=== PATIENT | female | born 1980 | race Caucasian/White ===

== ENCOUNTER 2016-04-11 18:51 | Emergency (ER) | payer MEDICAID ==
[~2016-04-11] VITALS: Ht 152.4 cm; Wt 108.5 kg
[~2016-04-11 18:51] MED LIST: ACET325T33 PO; CYCL-319 PO; HYDR-3498 PO; IBUP800T25 PO; NAPR-260 PO; PEN500 PO; PRED20TA PO
[2016-04-11 19:11] VITALS: Ht 152.4 cm; Wt 108.5 kg
[2016-04-11] MEDS ORDERED: IBUP-1542 PO (20:23)
[2016-04-11] MEDS ORDERED: IBUPROFEN 800 MG TAB PO ONE (20:30)
--- NOTE | 2016-04-11 20:37 | ERD ---
ER Documentation Chief Complaint Date/Time DATE: 04/11/16 TIME: 20:36 Chief Complaint Dizziness and bilateral leg cramps HPI Patient is a 35-year-old female with no medical problems who presents with leg cramping. She has leg cramping in both legs and pain running down the back of both of her legs. She says that she has had this for "a long time" although it has been worse since Friday. She felt dizzy. She also felt cold all over her body. She has had no treatment as of yet. She does not currently have a primary doctor. ROS All systems reviewed and are negative except as per history of present illness. Medications Home Meds Active Scripts Ibuprofen* (Motrin*) 600 Mg Tab, 600 MG PO Q6H Y for PAIN AND OR ELEVATED TEMP, #30 TAB Prov:MUNIR PIMENTEL MD 04/11/16 Prednisone* (Prednisone*) 20 Mg Tab, 40 MG PO DAILY for 4 Days, TAB Prov:ANGELIKA BROWN PA-C 07/25/15 Ibuprofen* (Motrin*) 800 Mg Tab, 800 MG PO Q6, #30 TAB Prov:ANGELIKA BROWN PA-C 07/25/15 Acetaminophen* (Tylenol*) 325 Mg Tablet, 2 TAB PO Q8 Y for PAIN AND OR ELEVATED TEMP, #20 TAB Prov:ANGELIKA BROWN PA-C 07/25/15 Penicillin V Potassium* (Penicillin V K*) 500 Mg Tab, 500 MG PO BID for 10 Days , TAB Prov:ANGELIKA BROWN PA-C 07/25/15 Naproxen* (Naprosyn*) 500 Mg Tablet, 500 MG PO BID Y for PAIN AND/OR INFLAMMATION, #30 TAB Prov:ANGELIKA BROWN PA-C 06/08/15 Cyclobenzaprine Hcl* (Cyclobenzaprine Hcl*) 10 Mg Tablet, 10 MG PO TID, #15 TAB Prov:ANGELIKA BROWN PA-C 06/08/15 Hydrocodone Bit-Acetaminophen* ([place]*) 5-325 Mg Tab, 1 TAB PO Q6 Y for PAIN, # 7 TAB Prov:ANGELIKA BROWN PA-C 06/08/15 Allergies Allergies: Coded Allergies: aspirin (Verified Allergy, Severe, hives and throat swelling, 04/11/16) PMhx/Soc Medical and Surgical Hx: pt denies Medical Hx, pt denies Surgical Hx Hx Alcohol Use: No Hx Substance Use: No Hx Tobacco Use: No Smoking Status: Never smoker FmHx Family History: No diabetes Physical Exam Vitals Vital Signs Date Time Temp Pulse Resp B/P Pulse Ox O2 Delivery O2 Flow Rate FiO2 04/11/16 19:11 98.5 86 20 137/77 100 Physical Exam Const: No acute distress Head: Atraumatic Eyes: Normal Conjunctiva ENT: Normal External Ears, Nose and Mouth. Neck: Full range of motion..~ No meningismus. Resp: Clear to auscultation bilaterally Cardio: Regular rate and rhythm, no murmurs Abd: Soft, non tender, non distended. Normal bowel sounds Skin: No petechiae or rashes Back: No midline or flank tenderness Ext: No cyanosis, or edema Neur: Awake and alert Psych: Normal Mood and Affect Results 24 hrs Laboratory Tests Test 04/11/16 20:08 Bedside Glucose 103mg/dL Current Medications Medications (Trade) Dose Ordered Sig/Ronny Route PRN Reason Start Time Stop Time Status Last Admin Dose Admin Ibuprofen (Motrin) 800 mg ONCE ONCE PO 04/11/16 20:30 04/11/16 20:31 DC 04/11/16 20:06 Procedures/MDM Accu-Chek is normal. Patient is a 35-year-old female with no medical problems who presents with lower back pain and leg pain. I believe the patient likely has sciatica. I doubt cauda equina syndrome, epidural abscess, or epidural hematoma. At this point I believe outpatient management is appropriate. The patient will need to follow-up closely with a primary doctor within 24-48 hours. She will be given ibuprofen for pain. She can return sooner for any worsening symptoms. Departure Diagnosis: Primary Impression: Back pain Back pain location: low back pain Chronicity: acute Back pain laterality: bilateral Sciatica presence: with sciatica Sciatica laterality: bilateral sciatica Qualified Code: M54.42 - Acute bilateral low back pain with bilateral sciatica Condition: Fair Patient Instructions: Back Pain W/ Sciatica [facility] Usted se fink hecho un examen mdico de control que le indica que no est en [place] condicin que requiera tratamiento urgente en el Departamento de Emergencia. Un estudio ms profundo y el tratamiento de ledbetter condicin pueden esperar sin ningn riesgo hasta que usted sea atendida/o en el consultorio de ledbetter mdico o [place] cl elliot. Es responsabilidad suya arreglar [place] estela para el seguimiento del ed. MANEJO DE CONDICIONES NO URGENTES EN EL FUTURO 1) Si usted tiene un mdico de atencin primaria: Usted debera llamar a ledbetter mdico de atencin primaria antes de venir al departamento de emergencia. Despus de las horas de consultorio, ledbetter doctor o ledbetter asociado/a est disponible por telfono. El mdico o enfermero de audrey en el servicio telefnico puede asesorarle por mariya medio para atender el problema, o ed contrario se puede programar [place] estela. 2) Si usted no tiene un mdico de atencin primaria: Llame al mdico o clnica de referencia que aparece abajo coty las horas de consultorio para hacer [place] estela para que le vean. CLINICAS: [facility] [phone] [address] [facility] [phone] [address] [facility]. [facility] [phone] [address] [facility] [place] [id number] [phone] [facility]. [place] [id number] [phone] [facility]. [phone] [address] Additional Instructions: Llame al doctor MAANA y connor [place] ESTELA PARA DENTRO DE 1-2 DOBBINS.Dgale a la secretaria que nosotros le instruimos hacer esta estela.Avise o llame si ledbetter condicin se empeora antes de la estela. Regresa aqui si peor o no mejor. MUNIR PIMENTEL MD Apr 11, 2016 20:37
== END 2016-04-11 20:31 | disposition home or self-care (01) ==
LOC: FTE 18:51
DX: M54.41 Lumbago with sciatica, right side (principal); M54.42 Lumbago with sciatica, left side
CPT/HCPCS: 82962; Z7502; Z7610; 99283